=== PATIENT | male | born 1935 | race Caucasian/White ===

== ENCOUNTER → 2016-08-29 | Outpatient (CLI) | payer OTHER ==
[~2016-08-29] MED LIST: IOPAMIDOL (ISOVUE-300) 100 ML BTL IV ONE
--- NOTE | 2016-08-29 17:22 | NM ---
Nuclear Medicine Whole Body Bone Scan at 1334 hours Clinical Indications: C61, prostate cancer, multiple myeloma. Comparison Studies: CT August 29, 2016. Technique: 21.6 mCi technetium 99m MDP were injected intravenously. Delayed images of the skeleton were obtained in anterior and posterior projections. Findings: Bilateral total knee arthroplasties. Increased activity involving bilateral first metatars ophalangeal joints consistent with degenerative arthropathy. Increased activity bilateral acromioclav icular and sternoclavicular joints also consistent with degenerative arthropathy. Increased activity involving the right side of the L4-L5 facet region which corresponds to degenerative disk disease and facet arthropathy at the L4-L5 level with associated lumbar levoscoliosis. There is no convincing ev idence of metastatic disease. Impression: 1. No evidence of osseous metastasis. 2. Bilateral first metatarsophalangeal joint osteoarthritis. 3. Degenerative disk disease and facet arthropathy in the lower lumbar spine. 4. Bilateral acromioclavicular and sternoclavicular degenerative arthropathy.
--- NOTE | 2016-08-29 17:37 | CT ---
CT Scan of the Abdomen and Pelvis (With Contrast) Indication: 81-year-old man with new diagnosis of prostate cancer. History of multiple myeloma and s tem cell transplant. Technique: No oral or rectal contrast. 90 mL of Isovue 300 were given intravenously by machine power injection. Multidetector helical CT imaging was performed from the diaphragm to the symphysis pubis . Dose reduction techniques were utilized. Comparison: Skeletal survey dated January 23, 2016, CT angiogram of the chest dated September 22, 2013, and M RI of the lumbar spine dated February 02, 2016. Findings: No intra-abdominal mass or enlarged lymph node. The prostate gland is upper normal size. T he seminal vesicles are normal in size. No hydronephrosis or bladder mass. Kidneys are minimally atro phic with benign bilateral renal scarring. No hydronephrosis or renal calculi. The liver, spleen, pancreas, and adrenal glands are normal. The gallbladder contains numerous radiolu cent gallstones. No biliary dilation or evidence of common bile duct stone. The portal vein is patent . Small to moderate hiatal hernia. Bowel pattern is normal with the exception of constipation and scatt ered diverticula throughout the sigmoid colon. The abdominal aorta is normal in caliber with mild calcified plaque. The lung bases are clear. No pul monary nodules or pleural effusion. Severe degenerative disk disease at L3-L4 and L4-L5 are unchanged . No acute compression fracture or lytic bone lesion. Large subchondral cysts and bilateral femoral h zenon are unchanged and consistent with CPPD arthropathy. Impression: 1. No lymphadenopathy or evidence of metastatic prostate adenocarcinoma. 2. No lytic bone lesion, compression fracture or evidence of multiple myeloma. 3. Cholelithiasis. 4. Sigmoid diverticulosis and constipation.
== END ==
LOC: FIMAGING 09:45
PROVIDERS: ATTEND Specialist
DX: C61 Malignant neoplasm of prostate (principal); C90.01 Multiple myeloma in remission
CPT/HCPCS: 74177; 78306; A9503; Q9967

== ENCOUNTER → 2016-11-12 | Outpatient (CLI) | payer OTHER | LOC: BRMIMAGING 09:52 | PROVIDERS: ATTEND Internal Medicine Hematology & Oncology | DX: Z13.820 Encounter for screening for osteoporosis (principal) ==

== ENCOUNTER → 2016-11-13 | Outpatient (CLI) | payer OTHER ==
[~2016-11-13] MED LIST changes: +GADOBUTROL 10 ML VIAL IVP ONE; -IOPAMIDOL (ISOVUE-300) 100 ML BTL IV ONE
== END ==
LOC: FIMAGING 12:29
PROVIDERS: ATTEND Radiology Radiation Oncology
DX: C61 Malignant neoplasm of prostate (principal)
CPT/HCPCS: 72197; 76377; A9585

== ENCOUNTER → 2017-02-11 | Outpatient (CLI) | payer OTHER | LOC: CIMAGING 10:17 | PROVIDERS: ATTEND Internal Medicine | DX: C90.00 Multiple myeloma not having achieved remission (principal); C61 Malignant neoplasm of prostate; M54.5 Low back pain | CPT/HCPCS: 72100; G0463 ==

== ENCOUNTER 2017-02-13 08:30 | Emergency (ER) | payer OTHER ==
--- NOTE | 2017-02-13 08:46 | EDPHY ---
H & P Time Seen by Provider: 02/13/17 08:40 HPI/ROS: CHIEF COMPLAINT: Foreign body in esophagus, can swallow HISTORY OF PRESENT ILLNESS: Patient is had esophageal dilatation before the last time by Dr. Mancilla 5 years ago. He was seen in 2013 in the ED with food impaction and got glucagon which resolved. He had medical treatment in November of 2015 in [place] for a piece of chicken. The patient ate ribs last night around 6:00 p.m. and has feeling of esophageal food impaction just posterior to his sternal notch. He can't swallow water or eat food. He had a Tums last night which did not help. No vomiting. REVIEW OF SYSTEMS: Eye: no change in vision ENT: no sore throat Cardiac: no chest pain or syncope Pulmonary: no cough or SOB Abdomen: no vomiting, diarrhea, abdominal pain Musculoskeletal: no back pain Skin: no rash Neuro: no headache Constitutional: no fever : no urinary symptoms A comprehensive 10 point review of systems is otherwise negative aside from elements mentioned in the history of present illness. PAST MEDICAL HISTORY: Previous esophageal food impaction, multiple myeloma, thyroid, PE on Xarelto, knee replacement, pacemaker Social history: Nonsmoker General Appearance: Alert and conversant, cooperative. Eyes: No scleral icterus. ENT, Mouth: Normal mucous membranes. Pharynx is normal without angioedema. Respiratory: Normal respiratory effort, no wheezing or stridor. Cardiovascular: Regular rate and rhythm. Gastrointestinal: Abdomen is soft and non tender. Neurological: Alert and oriented x3. Normally conversant. Face symmetric, normal movement and sensation in all extremities. Skin: Warm and dry, no rashes. Musculoskeletal: No peripheral edema and no joint swelling. Psychiatric: Not agitated. Emergency Department course/MDM: Chart from 06/07/2014 reviewed and he had symptoms resolved with 1 mg glucagon. Discussed and consented with the patient. Does not have airway involvement. Does not have signs or symptoms of perforation. 1010: Still cannot swallow after glucagon, discussed with Dr. Villalpando from Gastroenterology, will take the patient to endoscopy this morning. 1035: Patient states now he can swallow. Irasema notified, outpatient f/u [facility]. Smoking Status: Never smoked Constitutional: Initial Vital Signs Temperature (C) 36.5 C 02/13/17 08:35 Heart Rate 81 02/13/17 08:35 Respiratory Rate 14 02/13/17 08:35 Blood Pressure 146/101 H 02/13/17 08:35 O2 Sat (%) 97 02/13/17 08:35 O2 Delivery Mode Room Air Allergies/Adverse Reactions: No Known Allergies Allergy (Verified 02/13/17 08:34) Home Medications: Medication Instructions Recorded Levothyroxine [Synthroid 125 mcg 125 mcg PO DAILY06 02/01/16 (*)] Rivaroxaban [Xarelto 10mg (*)] 20 mg PO DAILY 02/01/16 Polyethylene Glycol 3350 [Miralax 17 gm PO DAILY PRN #0 pkt 02/07/16 17 gm (*)] Medical Decision Making Differential Diagnosis: Differential considered including but not limited to aspiration, esophageal food impaction, local esophageal trauma, muscle spasm. - Data Points Medications Given: Discontinued Medications Glucagon (Glucagen) 1 mg IVP EDNOW ONE Stop: 02/13/17 08:56 Last Admin: 02/13/17 09:09 Dose: 1 mg Departure - Departure Disposition: Home, Routine, Self-Care Clinical Impression: Esophageal obstruction due to food impaction Condition: Good Instructions: Food Impaction (ED) Referrals: Shine Rodriguez MD [Primary Care Provider] - As per Instructions Belinda Mancilla MD [Medical Doctor] - As per Instructions
[2017-02-13] MEDS ORDERED: GLUCAGON,HUMAN RECOMBINANT 1 MG VIAL IVP ONE (08:55)
[2017-02-13 10:55] VITALS: BP 147/109; PULSE 64; RESP 17; TEMP 98.2; O2SAT 96
== END 2017-02-13 11:06 | disposition home or self-care (01) ==
DX: T18.128A Food in esophagus causing other injury, initial encounter (principal); Z79.01 Long term (current) use of anticoagulants; Z95.5 Presence of coronary angioplasty implant and graft; X58.XXXA Exposure to other specified factors, initial encounter
CPT/HCPCS: 96374; 99284; J1610

== ENCOUNTER → 2017-09-04 | Outpatient (CLI) | payer OTHER | LOC: FIMAGING 12:08 | PROVIDERS: ATTEND Physical Medicine & Rehabilitation | DX: S32.010A Wedge compression fracture of first lumbar vertebra, initial encounter for closed fracture (principal); M51.36 Other intervertebral disc degeneration, lumbar region; M46.96 Unspecified inflammatory spondylopathy, lumbar region; M48.061 Spinal stenosis, lumbar region without neurogenic claudication; M51.34 Other intervertebral disc degeneration, thoracic region; M46.94 Unspecified inflammatory spondylopathy, thoracic region; M48.04 Spinal stenosis, thoracic region; M46.97 Unspecified inflammatory spondylopathy, lumbosacral region; M51.37 Other intervertebral disc degeneration, lumbosacral region; M48.07 Spinal stenosis, lumbosacral region ==

== ENCOUNTER 2018-03-24 09:44 | Emergency (ER) | payer OTHER ==
[2018-03-24] MEDS ORDERED: GLUCAGON HCL 1 MG VIAL IVP ONE (10:32)
[2018-03-24] MEDS ORDERED: GLUCAGON HCL 1 MG VIAL ONE (10:32)
--- NOTE | 2018-03-24 10:39 | EDPHY ---
H & P Stated Complaint: steak last night/?food stuck in throat/unable to swallow Time Seen by Provider: 03/24/18 09:53 HPI/ROS: CHIEF COMPLAINT: Trouble swallowing HISTORY OF PRESENT ILLNESS: This is an 82-year-old male with a history of esophageal food impaction who presents with difficulty swallowing after eating steak last night. He has had this problem for several years and has had 3 previous episodes requiring emergency treatment. In 2013 he had a good response to IV glucagon. In 2015 he required endoscopy for removal of an esophageal food impaction. He states that solid food, always meat, "hangs up" at a certain spot in his throat. He was eating steak last night when this happened. This happens 2 to 3 times a month and he is usually able to vomit and dislodge the food. However this did not work last night. He now continues with foreign body sensation and inability to eat or drink. When he tries to swallow water he feels as if it sits there and ultimately yes to choke it back up. He is able to swallow his spit. No difficulty breathing. REVIEW OF SYSTEMS: A ten system review of systems was performed and is negative with the exception of the items mentioned in the HPI. Past medical and surgical history: 1. His esophageal food impaction 2. Multiple myeloma status post stem cell transplant 2008 3. Hypothyroidism 4. PE on Xarelto 5. Total knee replacement 6. Pacemaker Social history: He lives with his . 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 He does not use tobacco products. He drinks alcohol socially. General Appearance: Alert. Vital signs reviewed. Blood pressure 126/93 at triage. Eyes: Pupils equal and round, no conjunctival injection, no discharge. Anicteric. ENT, Mouth: Mucous membranes are moist, no oropharyngeal erythema or edema. No drooling. Neck: No lymphadenopathy, supple. Trachea midline. Respiratory: Lungs are clear to auscultation; no wheezes, rales, or rhonchi. Cardiovascular: Regular rate and rhythm; no murmur, rub, or gallop. Gastrointestinal: Abdomen is soft and nontender, no masses or organomegaly, bowel sounds normal. Skin: Warm and dry, no rashes on exposed skin, normal color. Extremities: No lower extremity edema, no calf tenderness or swelling. Neurological: Alert and oriented. Moving all four extremities easily and equally. Psychiatric: Normal affect. - Personal History Current Tetanus Diphtheria and Acellular Pertussis (TDAP): Yes Tetanus Vaccine Date: 2009 - Medical/Surgical History Hx Asthma: No Hx Chronic Respiratory Disease: No Hx Diabetes: No Hx Cardiac Disease: Yes Hx Renal Disease: No Hx Cirrhosis: No Hx Alcoholism: No Hx HIV/AIDS: No Hx Splenectomy or Spleen Trauma: No Other PMH: MULTIPLE MYELOMA, STEM CELL TRANSPLANT, HYPOTHYROID, PE, Cataract surgerery, Knee replacement 2006, pacemaker, throat strictures prostate surgery - Social History Smoking Status: Never smoked Constitutional: Initial Vital Signs Temperature (C) 36.5 C 03/24/18 09:47 Heart Rate 71 03/24/18 09:47 Respiratory Rate 17 03/24/18 09:47 Blood Pressure 126/93 H 03/24/18 09:47 O2 Sat (%) 96 03/24/18 09:47 O2 Delivery Mode Room Air Allergies/Adverse Reactions: No Known Allergies Allergy (Verified 03/24/18 09:47) Home Medications: Medication Instructions Recorded Levothyroxine [Synthroid 125 mcg 125 mcg PO DAILY06 02/01/16 (*)] Rivaroxaban [Xarelto 10mg (*)] 20 mg PO DAILY 02/01/16 Polyethylene Glycol 3350 [Miralax 17 gm PO DAILY PRN #0 pkt 02/07/16 17 gm (*)] Medical Decision Making ED Course/Re-evaluation: Patient with history of esophageal food impaction presents with same. He has responded to glucagon him the past and was given a mg of glucagon IV. At some point thereafter he was able to swallow easily and drank a full glass of water without difficulty. I am recommending follow up with Gastroenterology. Differential Diagnosis: I considered a differential diagnosis that includes but is not limited to esophageal food impaction, esophageal stricture, malignancy, angioedema, and achalasia. - Data Points Medications Given: Discontinued Medications Glucagon (Glucagon) 1 mg IVP EDNOW ONE Stop: 03/24/18 10:33 Last Admin: 03/24/18 10:37 Dose: 1 mg Departure - Departure Disposition: Home, Routine, Self-Care Clinical Impression: Esophageal obstruction due to food impaction Condition: Good Instructions: Food Impaction (ED) Additional Instructions: As we discussed, I think you should follow up with a plant safety leader. You can see the plant safety leader of your choice. As you know, you should to each bite carefully and you should take small bites. Be sure that you are sitting upright when you are eating or drinking. Referrals: Shine Rodriguez MD [Primary Care Provider] - As per Instructions
[2018-03-24 11:48] VITALS: BP 140/98
== END 2018-03-24 11:48 | disposition home or self-care (01) ==
DX: T18.128A Food in esophagus causing other injury, initial encounter (principal); X58.XXXA Exposure to other specified factors, initial encounter; C90.00 Multiple myeloma not having achieved remission; E03.9 Hypothyroidism, unspecified; Z79.01 Long term (current) use of anticoagulants; Z95.0 Presence of cardiac pacemaker; Z86.711 Personal history of pulmonary embolism
CPT/HCPCS: 96374; 99284; J1610